=== PATIENT | female | born 1960 | race Caucasian/White ===

== ENCOUNTER → 2016-10-23 | Outpatient (CLI) | payer BC ==
--- NOTE | 2016-11-12 13:15 | MM ---
Reason for exam: screening (asymptomatic). Last mammogram was performed 3 years and 7 months ago. History: Patient is postmenopausal and had first child at age 36. Physical Findings: A clinical breast exam by your physician is recommended on an annual basis and results should be correlated with mammographic findings. MG 3D Screening Mammo W/Cad Bilateral CC and MLO view(s) were taken. Prior study comparison: March 25, 2013, mammogram, performed at [facility]. February 01, 2009, mammogram, performed at [facility]. January 23, 2007, mammogram, performed at [facility]. The breast tissue is heterogeneously dense. This may lower the sensitivity of mammography. Focal asymmetry right upper outer quadrant, stable. No significant changes when compared with prior studies. ASSESSMENT: Benign, BI-RAD 2 RECOMMENDATION: Routine screening mammogram of both breasts in 1 year.
== END | disposition home or self-care (01) ==
LOC: RADMAMWWP 14:54
PROVIDERS: ATTEND Family Medicine
DX: Z12.31 Encounter for screening mammogram for malignant neoplasm of breast (principal)
CPT/HCPCS: 77063; G0202

== ENCOUNTER → 2017-11-18 | Outpatient (CLI) | payer BC ==
--- NOTE | 2017-11-20 10:43 | MM ---
Reason for exam: screening (asymptomatic). Last mammogram was performed 1 year and 1 month ago. History: Patient is postmenopausal and had first child at age 36. Physical Findings: A clinical breast exam by your physician is recommended on an annual basis and results should be correlated with mammographic findings. MG 3D Screening Mammo W/Cad Bilateral CC and MLO view(s) were taken. Prior study comparison: October 23, 2016, bilateral MG 3d screening mammo w/cad. March 25, 2013, mammogram, performed at [facility]. There are scattered fibroglandular densities. Focal asymmetry right upper outer quadrant. No significant changes when compared with prior studies. ASSESSMENT: Benign, BI-RAD 2 RECOMMENDATION: Routine screening mammogram of both breasts in 1 year.
== END | disposition home or self-care (01) ==
LOC: RADMAMWWP 07:47
PROVIDERS: ATTEND Family Medicine
DX: Z12.31 Encounter for screening mammogram for malignant neoplasm of breast (principal)
CPT/HCPCS: 77063; 77067

== ENCOUNTER 2018-10-28 09:41 | Day surgery (SDC) | payer BC, OTHER ==
[2018-10-23 15:40] VITALS: BMI 29.0
--- NOTE | 2018-10-28 08:08 | P.GSHP ---
History of Present Illness H&P Date: 10/28/18 CHIEF COMPLAINT: Colon screen HISTORY OF PRESENT ILLNESS: The patient is a 58-year-old female who presents for colon screen. Lower endoscopy was offered for further evaluation and management. PAST MEDICAL HISTORY: Please see list. PAST SURGICAL HISTORY: Please see list. MEDICATIONS: Please see list. ALLERGIES: Please see list. SOCIAL HISTORY: No illicit drug use FAMILY HISTORY: No reports of Crohn disease or ulcerative colitis. REVIEW OF ORGAN SYSTEMS: CONSTITUTIONAL: No reports of fevers or chills. PHYSICAL EXAM: VITAL SIGNS: Stable GENERAL: Well-developed pleasant in no acute distress. HEENT: No scleral icterus. Extraocular movements grossly intact. Moist buccal mucosa. NECK: Supple without lymphadenopathy. CHEST: Unlabored respirations. Equal bilateral excursions. CARDIOVASCULAR: Regular rate and rhythm. Distal 2+ pulses. ABDOMEN: Soft, nontender, nondistended. MUSCULOSKELETAL: No clubbing, cyanosis, or edema. ASSESSMENT: 1. Colon screen. PLAN: 1. Recommend proceeding with a lower endoscopy Past Medical History Past Medical History: No Reported History History of Any Multi-Drug Resistant Organisms: None Reported Past Surgical History: Appendectomy, Hernia Repair Additional Past Surgical History / Comment(s): ABDOMINAL HERNIA, OVARIAN CYST, COLONOSCOPIES Past Anesthesia/Blood Transfusion Reactions: No Reported Reaction Past Psychological History: Depression Smoking Status: Former smoker Past Alcohol Use History: Daily Additional Past Alcohol Use History / Comment(s): SMOKES 1/2 PPD (DOWN FROM 1 PPD), SMOKING FOR 20 YEARS. DRINKS 1 GLASS OF WINE DAILY. Past Drug Use History: None Reported - Past Family History Father Family Medical History: Cancer Additional Family Medical History / Comment(s): COLON CANCER Medications and Allergies Home Medications Medication Instructions Recorded Confirmed Type No Known Home Medications 10/23/18 10/23/18 History Allergies Allergy/AdvReac Type Severity Reaction Status Date / Time No Known Allergies Allergy Verified 10/23/18 15:03
[~2018-10-28 09:41] MED LIST: LACTATED RINGERS 1,000 ML IV SCH; LIDOCAINE 1% 20 ML VIAL (10MG/ML) FOR IV START INTRADERMA PRN
[2018-10-28 10:25] VITALS: RESP 16; TEMP 97.1
[2018-10-28] MEDS ORDERED: LIDOCAINE 1% INJ 10MG/ML (20 ML MDV) ONE (10:47)
[2018-10-28] MEDS ORDERED: PROPOFOL 10 MG/ML 20 ML VIAL IV ONE (10:47)
--- NOTE | 2018-10-28 11:09 | P.PCN ---
Date of Procedure: 10/28/18 Description of Procedure: PREOPERATIVE DIAGNOSIS: Family history colon cancer, father Colonoscopy screening. POSTOPERATIVE DIAGNOSIS: Family history colon cancer, father Colonoscopy screening. OPERATION: Colonoscopy to the ileocecal valve and appendiceal orifice. SURGEON: Alka Yuan MD. ANESTHESIA: MAC. INDICATIONS: The patient is a 58-year-old female who presents for colonoscopy screening. Last colonoscopy 5 years ago. Benefits and risks were described and informed consent was obtained. DESCRIPTION OF PROCEDURE: The patient had undergone Gatorade, MiraLAX and Dulcolax prep. She had been brought into the operating room and laid in the left lateral decubitus position. After adequate intravenous sedation, the rectum was examined with 2% lidocaine jelly. No external hemorrhoids were encountered. The rectal tone was within normal limits. No lesions were palpated in the rectal vault. An Olympus colonoscope was advanced until the ileocecal valve and appendiceal orifice were clearly viewed. The prep was excellent with clear visualization of the mucosal folds. The scope was removed with visualization of each mucosal fold. Scattered diverticulosis was encountered. No colonic polyps were found. No evidence of focal colitis was found. Retroflexion of the scope demonstrated no internal hemorrhoids. The colon was desufflated. The patient had tolerated the procedure well. Withdrawal time was over 6 minutes. FINDINGS: No internal hemorrhoids No external prolapsed hemorrhoids. No arteriovenous malformations. No adenomatous polyps. No focal colitis. RECOMMENDATIONS: Lower endoscopy in 5 2023 Plan - Discharge Summary Discharge Rx Participant: No New Discharge Prescriptions: No Action No Known Home Medications Discharge Medication List No Known Home Medications 10/23/18 [History] Follow up Appointment(s)/Referral(s): Alka Yuan MD [STAFF PHYSICIAN] - As Needed Patient Instructions/Handouts: *[facility] - (Anesthesia) Endoscopy Discharge Instructions, Colonoscopy (GEN) Activity/Diet/Wound Care/Special Instructions: Repeat colonoscopy, 5 years2023 Discharge Disposition: HOME SELF-CARE
[2018-10-28 11:36] VITALS: BP 151/88; PULSE 63
== END 2018-10-28 11:43 | disposition home or self-care (01) ==
LOC: ORWHC2ENDO 09:41
PROVIDERS: ATTEND Surgery Plastic and Reconstructive Surgery
DX: Z12.11 Encounter for screening for malignant neoplasm of colon (principal); Z80.0 Family history of malignant neoplasm of digestive organs; K57.30 Diverticulosis of large intestine without perforation or abscess without bleeding
CPT/HCPCS: G0105; J2001; J2704; 45378

== ENCOUNTER → 2019-01-22 | Outpatient (CLI) | payer OTHER ==
--- NOTE | 2019-01-26 13:48 | MM ---
Reason for exam: screening (asymptomatic). Last mammogram was performed 1 year and 2 months ago. History: Patient is postmenopausal and had first child at age 36. Physical Findings: A clinical breast exam by your physician is recommended on an annual basis and results should be correlated with mammographic findings. MG Screening Mammo w CAD Bilateral CC and MLO view(s) were taken. Prior study comparison: November 18, 2017, bilateral MG 3d screening mammo w/cad. October 23, 2016, bilateral MG 3d screening mammo w/cad. There is chronic nodularity in the right breast. Focal asymmetry right upper outer quadrant, stable. No significant changes when compared with prior studies. ASSESSMENT: Benign, BI-RAD 2 RECOMMENDATION: Routine screening mammogram of both breasts in 1 year.
== END | disposition home or self-care (01) ==
LOC: RADMAMWWP 07:31
PROVIDERS: ATTEND Family Medicine
DX: Z12.31 Encounter for screening mammogram for malignant neoplasm of breast (principal)
CPT/HCPCS: 77067

== ENCOUNTER → 2020-03-06 | Outpatient (CLI) | payer OTHER | END | disposition home or self-care (01) | LOC: LABWHC1 08:40 | PROVIDERS: ATTEND Family Medicine | DX: Z11.59 Encounter for screening for other viral diseases (principal) ==

== ENCOUNTER → 2020-06-26 | Outpatient (CLI) | payer OTHER | END | disposition home or self-care (01) | LOC: LABWHC1 11:38 | PROVIDERS: ATTEND Emergency Medicine | DX: Z20.828 Contact with and (suspected) exposure to other viral communicable diseases (principal) | CPT/HCPCS: U0003; C9803 ==

== ENCOUNTER → 2020-09-19 | Outpatient (CLI) | payer OTHER ==
--- NOTE | 2020-09-21 13:54 | MM ---
Reason for exam: screening (asymptomatic). Last mammogram was performed 1 year and 8 months ago. History: Patient is postmenopausal and had first child at age 36. Physical Findings: A clinical breast exam by your physician is recommended on an annual basis and results should be correlated with mammographic findings. MG 3D Screening Mammo W/Cad Bilateral CC and MLO view(s) were taken. Prior study comparison: January 22, 2019, bilateral MG screening mammo w CAD. November 18, 2017, bilateral MG 3d screening mammo w/cad. There are scattered fibroglandular densities. There is chronic nodularity in the right breast. No significant changes when compared with prior studies. ASSESSMENT: Benign, BI-RAD 2 RECOMMENDATION: Routine screening mammogram of both breasts in 1 year.
== END | disposition home or self-care (01) ==
LOC: RADMAMWWP 13:58
PROVIDERS: ATTEND Family Medicine
DX: Z12.31 Encounter for screening mammogram for malignant neoplasm of breast (principal)
CPT/HCPCS: 77063; 77067

== ENCOUNTER → 2021-01-15 | Outpatient (CLI) | payer OTHER ==
--- NOTE | 2021-01-16 06:58 | XR ---
Right hip HISTORY: Right hip pain 2 views the right hip There is marginal spurring and joint space loss. Remodeling is present at the femoral head. Alignment is maintained. Bone mineralization may be reduced. No fracture or dislocation. IMPRESSION: Osteoarthritis.
== END | disposition home or self-care (01) ==
LOC: RADXRMAIN 20:55
PROVIDERS: ATTEND Family Medicine
DX: M16.11 Unilateral primary osteoarthritis, right hip (principal)
CPT/HCPCS: 73502

== ENCOUNTER → 2021-11-15 | Outpatient (CLI) | payer OTHER ==
--- NOTE | 2021-11-19 10:41 | MM ---
Reason for exam: screening (asymptomatic). Last mammogram was performed 1 year and 2 months ago. History: Patient is postmenopausal and had first child at age 36. Physical Findings: A clinical breast exam by your physician is recommended on an annual basis and results should be correlated with mammographic findings. MG 3D Screening Mammo W/Cad Bilateral CC and MLO view(s) were taken. Prior study comparison: September 19, 2020, bilateral MG 3d screening mammo w/cad. January 22, 2019, bilateral MG screening mammo w CAD. There are scattered fibroglandular densities. Global asymmetry right upper outer quadrant is unchanged. No significant changes when compared with prior studies. ASSESSMENT: Benign, BI-RAD 2 RECOMMENDATION: Routine screening mammogram of both breasts in 1 year.
== END | disposition home or self-care (01) ==
LOC: RADMAMWWP 09:21
PROVIDERS: ATTEND Family Medicine
DX: Z12.31 Encounter for screening mammogram for malignant neoplasm of breast (principal); Z78.0 Asymptomatic menopausal state
CPT/HCPCS: 77063; 77067

== ENCOUNTER → 2022-12-10 | Outpatient (CLI) | payer BC ==
--- NOTE | 2022-12-11 07:22 | MM ---
Reason for Exam: Screening (asymptomatic). Last mammogram was performed 1 year(s) and 1 month(s) ago. Patient History: Menarche at age 14. First Full-Term at age 36. Late child-bearing (after 30). Postmenopausal. Currently using Estrogen. Risk Values: Meron 5 year model risk: 2.0%. NCI Lifetime model risk: 10.0%. Prior Study Comparison: 01/22/2019 Bilateral Screening Mammogram, [facility]. 09/19/2020 Bilateral Screening Mammogram, [facility]. 11/15/2021 Bilateral Screening Mammogram, [facility]. Tissue Density: There are scattered fibroglandular densities. Findings: Analyzed By CAD. Asymmetric tissue in the right breast upper outer aspect is unchanged from prior mammograms. There is no suspicious new group of microcalcifications or new suspicious mass in either breast. Overall Assessment: Negative, BI-RAD 1 Management: Screening Mammogram of both breasts in 1 year. A clinical breast exam by your physician is recommended on an annual basis and results should be correlated with mammographic findings. Electronically signed and approved by: Bobo Lara M.D.
== END | disposition home or self-care (01) ==
LOC: RADMAMWWP 12-02 07:00
PROVIDERS: ATTEND Family Medicine
DX: Z12.31 Encounter for screening mammogram for malignant neoplasm of breast (principal); Z78.0 Asymptomatic menopausal state
CPT/HCPCS: 77063; 77067

== ENCOUNTER → 2023-03-27 | Outpatient (CLI) | payer BC ==
--- NOTE | 2023-03-27 13:37 | US ---
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 VESSELS IMAGED: Common Femoral Vein Deep Femoral Vein Greater Saphenous Vein * Femoral Vein Popliteal Vein Small Saphenous Vein * Proximal Calf Veins (* superficial vessels) Right Leg: Negative for DVT IMPRESSION: Grayscale, color doppler, spectral doppler imaging performed of the deep veins of the lo wer extremities. There is normal flow, compressibility, vascular waveforms.
== END | disposition home or self-care (01) ==
LOC: RADUSWWP 13:01
PROVIDERS: ATTEND Orthopaedic Surgery Sports Medicine
DX: M16.11 Unilateral primary osteoarthritis, right hip (principal); Z47.1 Aftercare following joint replacement surgery; Z96.641 Presence of right artificial hip joint

== ENCOUNTER 2023-09-28 17:24 | Emergency (ER) | payer BC ==
--- NOTE | 2023-09-28 17:45 | ED ---
Head Injury HPI - General Chief complaint: Head Injury Stated complaint: Head Injury Time Seen by Provider: 09/28/23 17:31 Source: patient Mode of arrival: ambulatory Limitations: no limitations - History of Present Illness Initial comments: 62-year-old female presenting with chief complaint of bruising and swelling to the face. Patient states that on Friday she slipped on her porch steps and fell hitting the right side of her forehead, near the eye, on the guard rail of her porch. She had no loss of consciousness and she takes no blood thinners. She states that the next day she woke up with bruising to the right periorbital region. Today bruising surrounding the right eye is worse and there is a very small amount of bruising under the left eye. She states that the amount of swelling to the right eye is what prompted her to come to the ER. She denies headache, neck pain, nausea, vomiting, dizziness, vision or hearing changes, pain or difficulty with extraocular motions, numbness, tingling, weakness, chest pain, difficulty breathing, clear drainage from the nose or ears. - Related Data Home Medications Medication Instructions Recorded Confirmed No Known Home Medications 10/23/18 10/28/18 Allergies/Adverse reactions: Allergies Allergy/AdvReac Type Severity Reaction Status Date / Time No Known Allergies Allergy Verified 10/28/18 10:07 Review of Systems ROS Statement: Those systems with pertinent positive or pertinent negative responses have been documented in the HPI. ROS Other: All systems not noted in ROS Statement are negative. Past Medical History Past Medical History: No Reported History History of Any Multi-Drug Resistant Organisms: None Reported Past Surgical History: Appendectomy, Hernia Repair Additional Past Surgical History / Comment(s): ABDOMINAL HERNIA, OVARIAN CYST, COLONOSCOPIES Past Anesthesia/Blood Transfusion Reactions: No Reported Reaction Past Psychological History: Depression Past Alcohol Use History: Daily Past Drug Use History: None Reported - Past Family History Father Family Medical History: Cancer Additional Family Medical History / Comment(s): COLON CANCER General Exam Limitations: no limitations General appearance: alert, in no apparent distress Head exam: Present: normocephalic Expanded Head exam: Present: contusion (Bruising and swelling surrounding the right eye, no point tenderness) Eye exam: Present: PERRL, EOMI, periorbital swelling (Right eye). Absent: periorbital tenderness (there is some mild discomfort, no notable tenderness) Pupils: Present: normal accommodation Neck exam: Present: normal inspection, full ROM. Absent: tenderness Respiratory exam: Present: normal lung sounds bilaterally. Absent: respiratory distress, wheezes, rales, rhonchi, stridor Cardiovascular Exam: Present: regular rate, normal rhythm, normal heart sounds. Absent: systolic murmur, diastolic murmur, rubs, gallop, clicks Extremities exam: Present: normal inspection, full ROM Back exam: Present: normal inspection Neurological exam: Present: alert, oriented X3 Expanded Patient oriented to: Present: person, place, time Speech: Present: fluid speech Cranial nerves: EOM's Intact: Normal, Facial Sensation: Normal Cerebellar function: Finger to Nose: Normal, Heel to [place]: Normal Sensory exam: Upper Extremity Light Touch: Normal, Lower Extremity Light Touch: Normal Motor strength exam: RUE: 5, LUE: 5, RLE: 5, LLE: 5 Eye Response: (4) open spontaneously Motor Response: (6) obeys commands Verbal Response: (5) oriented [place] Total: 15 Psychiatric exam: Present: normal affect, normal mood Skin exam: Present: warm, dry Course Vital Signs 09/28/23 09/28/23 17:27 17:59 Temperature 97.9 F 98.9 F Pulse Rate 83 80 Respiratory 16 18 Rate Blood Pressure 155/99 146/90 O2 Sat by Pulse 98 97 Oximetry Medical Decision Making - Medical Decision Making Was pt. sent in by a medical professional or institution ([facility], RETAIL SALES REPRESENTATIVE, urgent care, hospital, or jail...) When possible be specific @ -No Did you speak to anyone other than the patient for history (EMS, parent, family, police, friend...)? What history was obtained from this source @ -No Did you review nursing and triage notes (agree or disagree)? Why? @ -I reviewed and agree with nursing and triage notes Were old charts reviewed (outside hosp., previous admission, EMS record, old EKG, old radiological studies, urgent care reports/EKG's, jail records)? Report findings @ -No old charts were reviewed Differential Diagnosis (chest pain, altered mental status, abdominal pain women, abdominal pain men, vaginal bleeding, weakness, fever, dyspnea, syncope, h eadache, dizziness, GI bleed, back pain, seizure, CVA, palpatations, mental health, musculoskeletal)? @ -Differential includes head injury, concussion, intracranial hemorrhage, fr acture, this is not an all inclusive list EKG interpreted by me (3pts min.). @ -As above X-rays interpreted by me (1pt min.). @ -None done CT interpreted by me (1pt min.). @ -None done U/S interpreted by me (1pt. min.). @ -None done What testing was considered but not performed or refused? (CT, X-rays, U/S, labs)? Why? @ -CT was offered, however patient refused. She tells me that she has had insurance issues recently and she is worried about paying for the CT and does not believe she needs one. What meds were considered but not given or refused? Why? @ -None Did you discuss the management of the patient with other professionals (professionals i.e. Dr., PA, RETAIL SALES REPRESENTATIVE, lab, RT, psych nurse, social human services assistants, wire machine cutter, teacher, parole or probation officer, major case detective)? Give summary @ -No Was smoking cessation discussed for >3mins.? @ -No Was critical care preformed (if so, how long)? @ -No Were there social determinants of health that impacted care today? How? (Homelessness, low income, unemployed, alcoholism, drug addiction, transportation, low edu. Level, literacy, decrease access to med. care, snf, rehab)? @ -No Was there de-escalation of care discussed even if they declined (Discuss DNR or withdrawal of care, Hospice)? DNR status @ -No What co-morbidities impacted this encounter? (DM, HTN, Smoking, COPD, CAD, Cancer, CVA, ARF, Chemo, Hep., AIDS, mental health diagnosis, sleep apnea, morbid obesity)? @ -None Was patient admitted / discharged? Hospital course, mention meds given and route, prescriptions, significant lab abnormalities, going to OR and other pertinent info. @ -62-year-old female presenting with chief complaint of bruising and swelling to the right eye. Patient had a fall 2 days ago where she hit the right side of her forehead against her porch. She had no loss of consciousness and no blood thinners. Since then she has had no headache, neck pain, numbness, tingling, weakness, pain or difficulty with extraocular motions, vision or hearing changes, nausea, vomiting, dizziness. No clear drainage from the nose or ears. Patient came in for evaluation due to the increased swelling and bruising today. On examination there are no focal neurological deficits, GCS is 15. No pain on palpation of the neck or base of the skull. No point tenderness on palpation of the periorbital region. I offered to perform a computed tomography scan, patient declined. We had a conversation on the risks and benefits of obtaining vs foregoing CT, patient continued to decline. She is of sound mind and body and able to make her own decisions. Given that the patient has no pain, no evidence of CSF leak, no neurological deficits, is not on blood thinners, and given the timeframe since her injury I believe she is low risk for any fracture or acute intracranial process. Increased bruising and swelling after an injury to the periorbital region is to be expected in this timeframe. Patient is educated on supportive management at home with ice and anti-inflammatories. She is educated on alarm symptoms that should prompt reevaluation. Follow-up with PCP. Report back to ER with any new or worsening symptoms. Discussed return parameters and answered all questions. Patient conveyed verbal understanding and agreed to the plan. I discussed this case in detail with my attending Dr. Robin Undiagnosed new problem with uncertain prognosis? @ -No Drug Therapy requiring intensive monitoring for toxicity (Heparin, Nitro, Insulin, Cardizem)? @ -No Were any procedures done? @ -No Diagnosis/symptom? @ -Head injury Acute, or Chronic, or Acute on Chronic? @ -acute Uncomplicated (without systemic symptoms) or Complicated (systemic symptoms)? @ -Uncomplicated Side effects of treatment? @ -No Exacerbation, Progression, or Severe Exacerbation? @ -No Poses a threat to life or bodily function? How? (Chest pain, [place], [place], pneumonia, PE, COPD, DKA, ARF, appy, cholecystitis, CVA, Diverticulitis, Homicidal, Suici rodrick, threat to staff... and all critical care pts) @ -Low likelihood Disposition Clinical Impression: Head injury, Contusion of face Disposition: HOME SELF-CARE Condition: Good Instructions (If sedation given, give patient instructions): Head Injury (ED) Additional Instructions: Follow-up with PCP. Report back to ER with any new or worsening symptoms. Continue to ice the affected area and take Motrin and Tylenol as needed for pain and swelling. Is patient prescribed a controlled substance at d/c from ED?: No Referrals: Jose G Lofton DO [Primary Care Provider] - 1-2 days Time of Disposition: 17:45
[2023-09-28 18:22] VITALS: BP 146/90; PULSE 80; RESP 18; TEMP 98.9
== END 2023-09-28 18:01 | disposition home or self-care (01) ==
LOC: EC 17:24
DX: S00.83XA Contusion of other part of head, initial encounter (principal); Z86.59 Personal history of other mental and behavioral disorders; W01.0XXA Fall on same level from slipping, tripping and stumbling without subsequent striking against object, initial encounter
CPT/HCPCS: 99283

== ENCOUNTER 2024-10-05 22:23 | Inpatient (IN) | payer MEDICAID, OTHER ==
--- NOTE | 2024-10-05 22:50 | ED ---
Psych HPI - General Source: patient Mode of arrival: EMS - History of Present Illness MD Complaint: feels depressed Associated Psychiatric Symptoms: depression, suicidal ideation History of same: Yes Quality: intermittent Worsens With: alcohol Context: recent alcohol abuse Associated Symptoms: denies other symptoms <Zane Salinas - Last Filed: 10/05/24 22:46> - General Source: patient, RN notes reviewed, old records reviewed Mode of arrival: EMS - History of Present Illness MD Complaint: feels depressed <Eugene Robin - Last Filed: 10/06/24 11:56> - General Chief Complaint: Alcohol Stated Complaint: Psych Time Seen by Provider: 10/05/24 22:28 - History of Present Illness Initial Comments: This patient is a 63-year-old woman here to have psychiatric evaluation. The patient states that she was feeling "unstable," earlier and she called her family. The patient states that her family called 911 and and resulted in her being brought in. The patient states that she is feeling better now, that she is not currently suicidal. (Zane Salinas) This is a 63-year-old woman here for psychiatric evaluation, patient did take overdose (Eugene Robin) - Related Data Home Medications Medication Instructions Recorded Confirmed Mirtazapine 15 mg PO HS 10/06/24 10/06/24 Allergies Allergy/AdvReac Type Severity Reaction Status Date / Time No Known Allergies Allergy Verified 10/06/24 09:43 Review of Systems ROS Other: All systems not noted in ROS Statement are negative. Constitutional: Denies: fever, chills Respiratory: Denies: cough, dyspnea Cardiovascular: Denies: chest pain, palpitations Gastrointestinal: Denies: abdominal pain, nausea, vomiting Genitourinary: Denies: dysuria, hematuria Musculoskeletal: Denies: back pain Skin: Denies: rash Neurological: Denies: headache, weakness, confusion Psychiatric: Reports: anxiety, depression, suicidal thoughts <Zane Salinas - Last Filed: 10/05/24 22:46> ROS Other: All systems not noted in ROS Statement are negative. <Eugene Robin - Last Filed: 10/06/24 11:56> ROS Statement: Those systems with pertinent positive or pertinent negative responses have been documented in the HPI. Past Medical History Past Medical History: No Reported History History of Any Multi-Drug Resistant Organisms: None Reported Past Surgical History: Appendectomy, Hernia Repair Additional Past Surgical History / Comment(s): ABDOMINAL HERNIA, OVARIAN CYST, COLONOSCOPIES Past Anesthesia/Blood Transfusion Reactions: No Reported Reaction Past Psychological History: Depression Past Alcohol Use History: Daily Past Drug Use History: None Reported - Past Family History Father Family Medical History: Cancer Additional Family Medical History / Comment(s): COLON CANCER <RitaZane - Last Filed: 10/05/24 22:46> General Exam Limitations: no limitations General appearance: alert, in no apparent distress Head exam: Present: atraumatic, normocephalic Eye exam: Present: normal appearance. Absent: scleral icterus, conjunctival injection Neck exam: Present: normal inspection Respiratory exam: Present: normal lung sounds bilaterally. Absent: respiratory distress, wheezes, rales, rhonchi, stridor, accessory muscle use Cardiovascular Exam: Present: regular rate, normal rhythm, normal heart sounds. Absent: systolic murmur, diastolic murmur, rubs, gallop GI/Abdominal exam: Present: soft. Absent: distended, tenderness Extremities exam: Present: normal inspection, normal capillary refill. Absent: pedal edema, calf tenderness Back exam: Present: normal inspection. Absent: CVA tenderness (R), CVA tenderness (L) Neurological exam: Present: alert Psychiatric exam: Present: depressed, anxious. Absent: agitated, manic, homicidal ideation, suicidal ideation Skin exam: Present: warm, dry, intact, normal color. Absent: rash <Zane Salinas - Last Filed: 10/05/24 22:46> Course <Eugene Robin - Last Filed: 10/06/24 11:56> Vital Signs 10/05/24 10/06/24 22:26 09:57 Temperature 97.7 F Pulse Rate 86 142 H Respiratory 18 100 H Rate Blood Pressure 148/87 142/86 O2 Sat by Pulse 93 L 98 Oximetry - Reevaluation(s) Reevaluation #1: 10/06/24 11:55 Medical records reviewed (Eugene Robin) Reevaluation #2: 10/06/24 11:55 Medically cleared for psychiatric evaluation (Eugene Robin) Medical Decision Making - Lab Data Result diagrams: 10/06/24 09:35 10/06/24 09:35 - EKG Data -: EKG Interpreted by Me (EKG is sinus 77 NC 151 QRS 94 QTc 438) <Eugene Robin - Last Filed: 10/06/24 11:56> - Medical Decision Making 63 female will be admitted for psychiatric evaluation and treatment (Eugene Robin) - Lab Data Lab Results 10/06/24 10/06/24 Range/Units 09:35 09:35 WBC 6.0 (3.8-10.6) k/uL RBC 3.67 L (3.80-5.40) m/uL Hgb 13.0 (11.4-16.0) gm/dL Hct 39.5 (34.0-46.0) % MCV 107.5 H (80.0-100.0) fL MCH 35.3 H (25.0-35.0) pg MCHC 32.9 (31.0-37.0) g/dL RDW 12.1 (11.5-15.5) % Plt Count 237 (150-450) k/uL MPV 7.9 Neutrophils % 75 % Lymphocytes % 18 % Monocytes % 4 % Eosinophils % 1 % Basophils % 0 % Neutrophils # 4.5 (1.3-7.7) k/uL Lymphocytes # 1.1 (1.0-4.8) k/uL Monocytes # 0.3 (0-1.0) k/uL Eosinophils # 0.1 (0-0.7) k/uL Basophils # 0.0 (0-0.2) k/uL Macrocytosis Moderate Sodium 139 (137-145) mmol/L Potassium 4.7 (3.5-5.1) mmol/L Chloride 107 (98-107) mmol/L Carbon Dioxide 22 (22-30) mmol/L Anion Gap 10 mmol/L BUN 14 (7-17) mg/dL Creatinine 0.91 (0.52-1.04) mg/dL Est GFR (CKD-EPI)AfAm 79 (>60 ml/min/1.73 sqM) Est GFR (CKD-EPI)NonAf 68 (>60 ml/min/1.73 sqM) Glucose 84 (74-99) mg/dL Calcium 10.3 H (8.4-10.2) mg/dL Phosphorus 4.7 H (2.5-4.5) mg/dL Magnesium 1.5 L (1.6-2.3) mg/dL Total Bilirubin 0.7 (0.2-1.3) mg/dL AST 56 H (14-36) U/L ALT 42 H (4-34) U/L Alkaline Phosphatase 49 (38-126) U/L Total Protein 7.3 (6.3-8.2) g/dL Albumin 4.6 (3.5-5.0) g/dL Lipase 105 (23-300) U/L Salicylates <1.0 mg/dL Acetaminophen <10.0 ug/mL Serum Alcohol <10 mg/dL Disposition <Zane Salinas - Last Filed: 10/05/24 22:46> Is patient prescribed a controlled substance at d/c from ED?: No Time of Disposition: 11:50 <Eugene Robin - Last Filed: 10/06/24 11:56> Clinical Impression: Overdose, Normal psychiatric assessment Disposition: TRANSFER TO PSYCH HOSP/UNIT Condition: Fair Referrals: None,Stated [REFERRING] - 1-2 days
[2024-10-06 10:10] LABS: Basophils % (A) 0 %; Eosinophils # (A) 0.1 k/uL (0-0.7); Eosinophils % (A) 1 %; HCT 39.5 % (34.0-46.0); Lymphocytes # (A) 1.1 k/uL (1.0-4.8); Lymphocytes % (A) 18 %; MCH 35.3 pg (25.0-35.0); MCHC 32.9 g/dL (31.0-37.0); MCV 107.5 fL (80.0-100.0); Macrocytosis Moderate; Mean Platelet Volume 7.9; Monocytes # (A) 0.3 k/uL (0-1.0); Monocytes % (A) 4 %; Neutrophils # (A) 4.5 k/uL (1.3-7.7); Neutrophils % (A) 75 %; Platelet Count 237 k/uL (150-450); RBC 3.67 m/uL (3.80-5.40); RDW 12.1 % (11.5-15.5)
[2024-10-06 10:18] LABS: ALT 42 U/L (4-34); Acetaminophen <10.0 ug/mL; African American GFR (CKD) 79 (>60 ml/min/1.73 sqM); Albumin 4.6 g/dL (3.5-5.0); Alcohol <10 mg/dL; Anion Gap 10 mmol/L; Blood Urea Nitrogen 14 mg/dL (7-17); Calcium 10.3 mg/dL (8.4-10.2); Carbon Dioxide 22 mmol/L (22-30); Chloride 107 mmol/L (98-107); Glucose 84 mg/dL (74-99); Lipase 105 U/L (23-300); Non-African American GFR(CKD) 68 (>60 ml/min/1.73 sqM); Salicylate <1.0 mg/dL; Sodium 139 mmol/L (137-145); Total Bilirubin 0.7 mg/dL (0.2-1.3); Total Protein 7.3 g/dL (6.3-8.2)
[2024-10-06 10:21] LABS: Potassium 4.7 mmol/L (3.5-5.1)
[2024-10-06 10:22] LABS: AST 56 U/L (14-36); Alkaline Phosphatase 49 U/L (38-126); Magnesium 1.5 mg/dL (1.6-2.3); Phosphorus 4.7 mg/dL (2.5-4.5)
[2024-10-06 12:04] LABS: Appearance,Urine Cloudy (Clear); Bacteria,Urine Rare /hpf; Bilirubin,Urine Negative (Negative); Blood,Urine Negative (Negative); Color,Urine Yellow; Glucose,Urine (UA) Negative (Negative); Ketones,Urine 2+ (Negative); Leukocyte Esterase,Urine Negative (Negative); Mucus,Urine Rare /hpf; Nitrite,Urine Negative (Negative); Protein,Urine Negative (Negative); RBC,Urine 1 /hpf (0-5); Squamous Epithelial Cell,Urine 8 /hpf (0-4); Urobilinogen,Urine <2.0 mg/dL (<2.0); WBC,Urine 3 /hpf (0-5)
[2024-10-06 12:09] LABS: Amphetamine Screen,Urine Not Detected (NotDetected); Barbiturate Screen,Urine Not Detected (NotDetected); Benzodiazepines Screen,Urine Not Detected (NotDetected); Cocaine Screen,Urine Not Detected (NotDetected); Methadone Screen, Urine Not Detected (NotDetected); Opiate Screen,Urine Not Detected (NotDetected); Oxycodone Screen, Urine Not Detected (NotDetected); Phencyclidine Screen,Urine Not Detected (NotDetected); Tricyclic Antidepressant,Urine Not Detected (NotDetected); Urn Cannabinoid Scrn Not Detected (NotDetected)
[2024-10-06] MEDS: MAGNESIUM OXIDE 400 MG TAB PO STA ×2 (12:18)
[2024-10-06] MEDS ORDERED: MAG HYDROX/AL HYDROX/SIMETH 355 ML BOTTLE PO PRN (13:26)
[2024-10-06] MEDS ORDERED: MAGNESIUM HYDROXIDE 2,400 MG/30 ML CUP PO PRN (13:26)
[2024-10-06] MEDS ORDERED: LORazepam 1 MG TAB PO PRN ×2 (13:26)
[2024-10-06] MEDS ORDERED: ACETAMINOPHEN TAB 325 MG TAB PO PRN (13:26)
[2024-10-06] MEDS ORDERED: IBUPROFEN 600 MG TAB PO PRN (13:26)
[2024-10-06] MEDS ORDERED: hydrOXYzine HCL 50 MG/ML 1 ML VIAL IM PRN (13:28)
[2024-10-06] MEDS ORDERED: hydrOXYzine pamoate 25 MG CAP PO PRN (13:28)
[2024-10-06] MEDS ORDERED: OLANZapine 10 MG TAB PO PRN (13:28)
[2024-10-06] MEDS ORDERED: OLANZapine 10 MG VIAL IM PRN (13:28)
[2024-10-06] MEDS ORDERED: FAMOTIDINE 20 MG TAB PO PRN (13:28)
[2024-10-06] MEDS: BACITRACIN OINT 1 EACH PACKET TOPICAL SCH (20:28)
[2024-10-07] MEDS: NICOTINE 14MG/24HR PATCH TRANSDERM SCH (08:52)
[2024-10-07] MEDS: FOLIC ACID 1 MG TAB PO SCH (08:54)
[2024-10-07] MEDS: MULTIVITAMINS, THERA 1 EACH TAB PO SCH (08:54)
[2024-10-07] MEDS: THIAMINE 100 MG TAB PO SCH (08:54)
--- NOTE | 2024-10-07 09:40 | P.MDCNMH ---
History of Present Illness H&P Date: 10/06/24 This is a 63-year-old female who presented to the emergency department with recent alcohol abuse, increased depression and suicidal ideation. Patient reports she follows with Dr. Lofton in the outpatient setting with no significant past medical history other than depression. Patient does admit to drinking alcohol and smoking cigarettes and denies any other illicit drug use. Nicotine patch offered and patient reports she would like to quit cold turkey. Patient was initially petitioned by the police department and was voluntarily admitted to [facility] for further psychiatric evaluation. Patient did report she cut her wrists and forearms and antecubital area with her very sharp German knife mane ffering superficial wounds. On exam there are multiple lacerations none requiring suturing or gluing although recommend bacitracin and frequent washing with soap and water. Patient denies any significant pain to the area. On exam patient denies chest pain or shortness of breath and has a steady gait. REVIEW OF SYSTEMS: CONSTITUTIONAL: No fever, no malaise, no fatigue. HEENT: No recent visual problems or hearing problems. Denied any sore throat. CARDIOVASCULAR: No chest pain, orthopnea, PND, no palpitations, no syncope. PULMONARY: No shortness of breath, no cough, no hemoptysis. GASTROINTESTINAL: No diarrhea, no nausea, no vomiting, no abdominal pain. NEUROLOGICAL: No headaches, no weakness, no numbness. HEMATOLOGICAL: Denies any bleeding or petechiae. GENITOURINARY: Denies any burning micturition, frequency, or urgency. MUSCULOSKELETAL/RHEUMATOLOGICAL: Denies any joint pain, swelling, or any muscle pain. ENDOCRINE: Denies any polyuria or polydipsia. The rest of the 14-point review of systems is negative. PHYSICAL EXAMINATION: GENERAL: The patient is alert and oriented x3, not in any acute distress. Well developed, thin built HEENT: Pupils are round and equally reacting to light. EOMI. No scleral icterus. No conjunctival pallor. Normocephalic, atraumatic. No pharyngeal erythema. No thyromegaly. CARDIOVASCULAR: S1 and S2 present. No murmurs, rubs, or gallops. PULMONARY: Chest is clear to auscultation, no wheezing or crackles. ABDOMEN: Soft, nontender, nondistended, normoactive bowel sounds. No palpable organomegaly. MUSCULOSKELETAL: No joint swelling or deformity. EXTREMITIES: No cyanosis, clubbing, or pedal edema. NEUROLOGICAL: Gross neurological examination did not reveal any focal deficits. SKIN: No rashes. Assessment: Severe depression with suicidal ideation and attempted overdose Multiple lacerations to bilateral forearms and antecubital area on the right, superficial not requiring sutures with no surrounding redness or cellulitis not ed Continued ongoing nicotine abuse Daily alcohol abuse Depression GI prophylaxis Full code Plan: Patient was initially petitioned by the police after family contacted them as patient feeling unstable with increased depression and suicidal ideation. Patient was voluntarily admitted to [facility]. for further psychiatric evaluation Encourage the patient to be compliant with medications, group therapy sessions and psychiatry evaluation Multiple superficial lacerations noted to the right forearm, wrist, and antecubital area with no surrounding cellulitis or drainage noted, recommend meticulous washing with soap and water and bacitracin Patient medically stable otherwise and has been encouraged to follow-up with primary care provider on discharge Thank you kindly for this consultation. The impression and plan of care has been dictated by Rowena Milian, Nurse Practitioner as directed. Dr. Lilia MD I have performed a history and examination and MDM of this patient, discussed the same with the dictator, and agree with the dictator's assessment and plan as written ,documented as a scribe. Based on total visit time, I have performed more than 50% of the visit. Past Medical History Past Medical History: No Reported History History of Any Multi-Drug Resistant Organisms: None Reported Past Surgical History: Appendectomy, Hernia Repair Additional Past Surgical History / Comment(s): ABDOMINAL HERNIA, OVARIAN CYST, COLONOSCOPIES Past Anesthesia/Blood Transfusion Reactions: No Reported Reaction Smoking Status: Current every day smoker - Past Family History Father Family Medical History: Cancer Additional Family Medical History / Comment(s): COLON CANCER Medications and Allergies Home Medications Medication Instructions Recorded Confirmed Type Mirtazapine 15 mg PO HS 10/06/24 10/06/24 History Allergies Allergy/AdvReac Type Severity Reaction Status Date / Time No Known Allergies Allergy Verified 10/06/24 09:43 Physical Exam Vitals: Vital Signs Temp Pulse Pulse Resp BP BP Pulse Ox 10/06/24 14:14 98.3 F 68 17 181/86 97 10/06/24 13:41 16 10/06/24 12:18 83 16 140/86 98 10/06/24 09:57 142 H 100 H 142/86 98 Intake and Output 10/06/24 10/06/24 10/07/24 14:59 22:59 06:59 Other: Weight 80.739 kg Cranial Nerve Examination - Cranial Nerves Cranial Nerve I- Olfactory: Intact Cranial Nerve II- Optic: Intact Cranial Nerve III- Oculomotor: Intact Cranial Nerve IV- Trochlear: Intact Cranial Nerve V- Trigeminal: Intact Cranial Nerve - Abducens: Intact Cranial Nerve VII- Facial: Intact Cranial Nerve VIII- Auditory: Intact Cranial Nerve IX- Glossopharyngeal: Intact Cranial Nerve X- Vagus: Intact Cranial Nerve XI- Accessory: Intact Cranial Nerve XII- Hypoglossal: Intact Results CBC & Chem 7: 10/06/24 09:35 10/06/24 09:35 Labs: Abnormal Lab Results - Last 24 Hours (Table) 10/06/24 10/06/24 10/06/24 Range/Units 09:35 09:35 09:35 RBC 3.67 L (3.80-5.40) m/uL MCV 107.5 H (80.0-100.0) fL MCH 35.3 H (25.0-35.0) pg Calcium 10.3 H (8.4-10.2) mg/dL Phosphorus 4.7 H (2.5-4.5) mg/dL Magnesium 1.5 L (1.6-2.3) mg/dL AST 56 H (14-36) U/L ALT 42 H (4-34) U/L Urine Appearance Cloudy H (Clear) Urine Ketones 2+ H (Negative) Ur Squamous Epith Cells 8 H (0-4) /hpf Urine Bacteria Rare H (None) /hpf Urine Mucus Rare H (None) /hpf
[2024-10-07] MEDS ORDERED: traZODone HCL 50 MG TAB PO PRN (13:05)
[2024-10-07] MEDS: SERTRALINE 50 MG TAB PO SCH (14:20)
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
--- NOTE | 2024-10-08 10:27 | P.PN ---
Progress Note - Text Progress Note Date: 10/08/24 Interval History: Patient was seen in group and was directable and agreeable to speak with physician underwriter in the office. She states feeling "better" today. She does express some difficulties falling asleep however states she does not wish to start melatonin as she prefers more herbal route. She mentions walking 4 miles yesterday for exercise however denied any restlessness or akathisia. She states she normally walks her dog 2-3 times a day and is very active on the outside. Patient seems very motivated to be engaged in therapy once discharged, goal oriented today. Patient has been working on cognitive distortions. She does report constipation, last bowel movement on Friday and was encouraged to take as needed medications for this. At this time patient denies any suicidal or homicidal ideations, intent or plan. Patient denies any auditory, visual hallucinations and denies any paranoia or delusions. Patient denies any side effects from the medications and has been compliant with meds. Mental Status Exam: General Appearance: Patient appears to be stated age is alert, directable, and cooperative. She is wearing glasses Behavior: Patient is calmly seated without any agitated behavior. Speech: Patient's speech is fluent and nonpressured. Mood/Affect: Mood is improving mildly, affect is congruent and bright, reactive. Suicidality/Homicidality: Patient denies having any suicidal or homicidal ideation intent or plan. Perceptions: Patient denies any visual hallucinations and denies any auditory hallucinations Though content/process: There is no evidence of any delusional thought content and thought process is linear and goal-directed. Memory and concentration: AOX3, grossly intact for the purposes of this session Judgment and insight: Improving mildly Assessment Suicide attempt via OD, cutting Major depressive disorder, recurrent, severe Alcohol use disorder, moderate Nicotine dependence Plan: -Patient continues to meet criteria for inpatient psychiatric admission for symptom stabilization and safety. Patient has signed adult voluntary form and medication consent and was placed in patient's chart. -Medications: Continue Zoloft 50 mg daily for depression, trazodone 50 mg as needed at bedtime for insomnia -When necessary Atarax and Zyprexa for agitation/aggression. -Labs: Reviewed -NRT -nicotine patch -CIWA protocol with Ativan PRN for ETOH withdrawal. -SW on board for discharge planning. Encouraged the patient to participate in milieu. Anticipate discharge back home on Friday
[2024-10-09 07:59] VITALS: RESP 16
--- NOTE | 2024-10-09 11:42 | P.PN ---
Progress Note - Text Progress Note Date: 10/09/24 Dictation was produced using Leaf dictation software. Please excuse any grammatical, word or spelling errors. Interval history: Patient was seen in her room and was directable and agreeable to speak with the abstract writer in the office for psychiatric follow-up. The pt states that she is feeling well today, she was able to reflect on what brought her to the hospital, reported that she had some difficulty coping with depression and anxiety and she was coping by using alcohol, and she had suicidal thoughts via cutting during which she cut her wrist. Reported that she called her sister at that time and her nephew decided to call the police and she was brought to the hospital. She reported that she is feeling really well today since her sister came to visit her and reported that they had a good chat. She claims that depression and anxiety are at the low to moderate side, she rated depression at 23 per 10, reported anxiety to be at the low side. She denied any current suicidal, self- harm or homicidal thoughts or behavior, she reported that "it was a bad mistake to cut my wrist and to drink alcohol." She denied any current auditory or visual hallucination, she admitted to good sleep and appetite. Reported that she is planning on seeing a therapist and psychiatrist following discharge, reported that she has a dog which she enjoyed walking twice a day. Reported that she has good support from her family and they socialize often. She is compliant with her medication, denied any current side effects. Her insight has been improving, her thought process is improving as well and more logical and linear. She is getting along well with everyone in the hospital, no issues of aggression or agitation reported, she is tending to her ADL. Mental Status Exam: General Appearance: Patient appears to be stated age is alert, directable, and cooperative. She is wearing glasses Behavior: Patient is calmly seated without any agitated behavior. Speech: Patient's speech is fluent and nonpressured. Mood/Affect: Mood is improving mildly, affect is congruent and bright, reactive. Suicidality/Homicidality: Patient denies having any suicidal or homicidal ideation intent or plan. Perceptions: Patient denies any visual hallucinations and denies any auditory hallucinations Though content/process: There is no evidence of any delusional thought content and thought process is linear and goal-directed. Memory and concentration: AOX3, grossly intact for the purposes of this session Judgment and insight: Improving mildly Assessment Suicide attempt via OD, cutting Major depressive disorder, recurrent, severe Alcohol use disorder, moderate Nicotine dependence Assessment/Plan: Continue with current diagnosis. Patient continues to meet criteria for inpatient psychiatric admission for symptom stabilization and safety. Patient will be maintained on current psychotropic medication regimen, will continue Zoloft 50 mg p.o. daily, trazodone 50 mg as needed at bedtime. Monitor for medication compliance and for any psychotropic medication side effects. Will continue to monitor ongoing response to treatment. Encouraged participation in milieu.
--- NOTE | 2024-10-10 08:10 | P.PN ---
Progress Note - Text Progress Note Date: 10/10/24 Dictation was produced using [employer] dictation software. Please excuse any grammatical, word or spelling errors. Interval history: Patient was seen in the hallway and was directable and agreeable to speak with the typewriter aligner in the office for psychiatric follow-up. Pt states that she slept well last night, reported that she is feeling rested, reported that she has been reading a book, reported that she usually enjoys reading. Reported that depression, and anxiety are at the low side, she rated depression at 1/10, and anxiety at 0/10. She denied any current suicidal, self-harm or homicidal thoughts or behavior. Denied any auditory or visual hallucination. Reported that she had really good sleep last night, reported good appetite. She reported that she has some sort of constipation and she was encouraged to give milk of magnesia to try, she reported that she will continue to hydrate herself and walk the halls and if she does not have a bowel movement today she will get some. She is compliant with her medication, denied any side effects. Reported that she is planning on seeing a therapist and psychiatrist following discharge. Reported that she is looking forward to going back home soon, reported she has good family support from her family. Patient was calm, cooperative and pleasant during the interview, her insight has been improving, she is future oriented. Thought process is logical and linear. He is tending to her ADL. No issues of aggression or agitation reported. Getting along well with everyone in the unit. Mental Status Exam: General Appearance: Patient appears to be stated age is alert, directable, and cooperative. She is wearing glasses Behavior: Patient is calmly seated without any agitated behavior. Speech: Patient's speech is fluent and nonpressured. Mood/Affect: Mood is "very good", affect is congruent and bright, reactive. Suicidality/Homicidality: Patient denies having any suicidal or homicidal ideation intent or plan. Perceptions: Patient denies any visual hallucinations and denies any auditory hallucinations Though content/process: There is no evidence of any delusional thought content and thought process is linear and goal-directed. Memory and concentration: AOX3, grossly intact for the purposes of this session Judgment and insight: Improving Assessment Suicide attempt via OD, cutting Major depressive disorder, recurrent, severe Alcohol use disorder, moderate Nicotine dependence Assessment/Plan: Continue with current diagnosis. Patient continues to meet criteria for inpatient psychiatric admission for symptom stabilization and safety. Patient will be maintained on current psychotropic medication regimen, will continue Zoloft 50 mg p.o. daily, trazodone 50 mg as needed at bedtime. Monitor for medication compliance and for any psychotropic medication side effects. Will continue to monitor ongoing response to treatment. Encouraged participation in milieu.
[2024-10-10 18:32] LABS: Influenza A Not Detected (Not Detectd); Influenza B Not Detected (Not Detectd); RSV Not Detected (Not Detectd)
[2024-10-11 06:56] VITALS: BP 129/81; PULSE 65; TEMP 97.6
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
== END 2024-10-11 13:52 | disposition home or self-care (01) | DRG 751 ==
LOC: EC 22:23 → 3MHU 10-06 13:14
PROVIDERS: ADMIT Psychiatry & Neurology Psychiatry; ATTEND Psychiatry & Neurology Psychiatry
DX: F33.2 Major depressive disorder, recurrent severe without psychotic features (principal); F10.20 Alcohol dependence, uncomplicated; F17.210 Nicotine dependence, cigarettes, uncomplicated; F41.9 Anxiety disorder, unspecified; K59.00 Constipation, unspecified; S51.811A Laceration without foreign body of right forearm, initial encounter; S51.812A Laceration without foreign body of left forearm, initial encounter; S61.511A Laceration without foreign body of right wrist, initial encounter; G47.09 Other insomnia; S61.512A Laceration without foreign body of left wrist, initial encounter; X78.9XXA Intentional self-harm by unspecified sharp object, initial encounter; Z63.8 Other specified problems related to primary support group; Z79.899 Other long term (current) drug therapy; Z59.86 Financial insecurity; Z56.0 Unemployment, unspecified; Z71.41 Alcohol abuse counseling and surveillance of alcoholic; Z71.89 Other specified counseling; Z11.52 Encounter for screening for COVID-19
CPT/HCPCS: 36415; 80053; 80143; 80179; 80306; 80320; 81001; 82075; 83036; 83690; 83735; 84100; 84443; 85025; 87635; 87636; 93005; 99285

== ENCOUNTER → 2024-11-27 | Outpatient (CLI) | payer OTHER ==
--- NOTE | 2024-11-27 08:44 | XR ---
EXAMINATION TYPE: XR chest 2V DATE OF EXAM: 11/27/2024 CLINICAL INDICATION: Female, 64 years old with history of Z01.818 ENCOUNTER FOR OTHER PREPROCEDURAL E XAMINATION, TECHNIQUE: Frontal and lateral views of the chest are obtained. COMPARISON: None FINDINGS: There is no focal air space opacity, pleural effusion, or pneumothorax seen. The cardiac silhouette size is within normal limits. Rounded ossific densities in region of left shoulder joint c ould reflect dystrophic calcifications. IMPRESSION: No acute cardiopulmonary process. [facility], , 11/27/2024 8:42 AM
== END | disposition home or self-care (01) ==
LOC: RADXRMAIN 08:16
PROVIDERS: ATTEND Family Medicine
DX: Z01.818 Encounter for other preprocedural examination (principal)
CPT/HCPCS: 71046

== ENCOUNTER → 2024-12-13 | Outpatient (CLI) | payer OTHER ==
--- NOTE | 2024-12-13 08:41 | MM ---
Reason for Exam: Screening (asymptomatic). Last mammogram was performed 2 year(s) and 0 month(s) ago. Patient History: Menarche at age 14. First Full-Term at age 36. Late child-bearing (after 30). Postmenopausal. Risk Values: Meron 5 year model risk: 2.1%. NCI Lifetime model risk: 9.4%. Prior Study Comparison: 09/19/2020 Bilateral Screening Mammogram, [facility]. 11/15/2021 Bilateral Screening Mammogram, [facility]. 12/10/2022 Bilateral MG 3D screening mammo w/cad, [facility]. Tissue Density: There are scattered areas of fibroglandular density. Findings: Analyzed By CAD. Unchanged global asymmetry upper outer quadrant right breast with adjacent chronic nodularity. There is no suspicious group of microcalcifications or new suspicious mass in either breast. Overall Assessment: Benign, BI-RAD 2 Management: Screening Mammogram of both breasts in 1 year. Patient should continue monthly self-breast exams. A clinical breast exam by your physician is recommended on an annual basis. This exam should not preclude additional follow-up of suspicious palpable abnormalities. Note on Meron scores and lifetime risk: 1. A Meron score greater than 3% is considered moderate risk. If this is the case, consider specialist referral to assess eligibility for a risk reducing agent. 2. If overall lifetime risk for the development of breast cancer is 20% or higher, the patient may qualify for future screening with alternating mammogram and breast MRI. [facility], , 12/13/2024 8:38 AM. Electronically signed and approved by: Dana Galdamez M.D. Radiologist
--- NOTE | 2024-12-13 09:22 | US ---
EXAMINATION TYPE: US liver DATE OF EXAM: 12/13/2024 COMPARISON: NONE CLINICAL INDICATION: Female, 64 years old with history of R74.8 ABN LEVELS SERUM ENZYMES; Abnormal la bs TECHNIQUE: Grayscale and color Doppler imaging of the right upper quadrant was performed. FINDINGS: EXAM MEASUREMENTS: Liver Length: 15.1 cm Gallbladder Wall: 0.1 cm CBD: 0.8 cm Right Kidney: 10.4 x 4.4 x 4.6 cm Pancreas: Limited visualization, not well seen Liver: wnl Gallbladder: No stones or wall thickening Evidence for sonographic James's sign: neg CBD: wnl Right Kidney: No hydronephrosis or masses seen . Tiny cyst may be at the inferior right renal cortex . IMPRESSION: No suspicious acute ultrasound changes. [facility], , 12/13/2024 9:19 AM
== END | disposition home or self-care (01) ==
LOC: RADMAMWWP 07:17
PROVIDERS: ATTEND Family Medicine
DX: Z12.31 Encounter for screening mammogram for malignant neoplasm of breast (principal); R92.323 Mammographic fibroglandular density, bilateral breasts; R74.8 Abnormal levels of other serum enzymes; Z78.0 Asymptomatic menopausal state
CPT/HCPCS: 76705; 77063; 77067

== ENCOUNTER 2025-03-08 11:53 | Emergency (ER) | payer OTHER ==
--- NOTE | 2025-03-08 12:22 | ED ---
General Adult HPI - General Chief complaint: Skin/Abscess/Foreign Body Stated complaint: Fall-Facial lac Time Seen by Provider: 03/08/25 12:03 Source: patient, RN notes reviewed Mode of arrival: ambulatory Limitations: no limitations - History of Present Illness Initial comments: 64-year-old female presenting to the emergency department with complaints of left-sided facial pain and drainage. Patient states that she tripped on Friday walking outside over uneven cement steps and hit the left side of her cheekbone on the ground. She denies loss of consciousness at the time of the fall. She states that she has been cleaning the area with alcohol and applying Neosporin however was concerned that this morning there was drainage that appeared to be p urulent. Patient endorses pain of the left side of the face that feels like it extends into her neck. She denies posterior neck pain, headaches, visual disturbances. Last tetanus vaccination within the past 5 years. Denies blood thinner use. - Related Data Previous Rx's Medication Instructions Recorded Folic Acid 1 mg PO DAILY 30 Days #30 tab 10/11/24 Melatonin 5 mg PO HS 30 Days #60 tab 10/11/24 Multivitamins, Thera [Multivitamin 1 each PO DAILY 30 Days #30 tab 10/11/24 (formulary)] Sertraline [Zoloft] 50 mg PO DAILY 30 Days #30 tab 10/11/24 Thiamine [Vitamin B-1] 100 mg PO DAILY 30 Days #30 tab 10/11/24 Allergies Allergy/AdvReac Type Severity Reaction Status Date / Time No Known Allergies Allergy Verified 03/08/25 11:59 Review of Systems ROS Statement: Those systems with pertinent positive or pertinent negative responses have been documented in the HPI. ROS Other: All systems not noted in ROS Statement are negative. Past Medical History Past Medical History: No Reported History History of Any Multi-Drug Resistant Organisms: None Reported Past Surgical History: Appendectomy, Hernia Repair Additional Past Surgical History / Comment(s): ABDOMINAL HERNIA, OVARIAN CYST, COLONOSCOPIES Past Anesthesia/Blood Transfusion Reactions: No Reported Reaction Past Psychological History: Depression Smoking Status: Current every day smoker Past Alcohol Use History: Daily Past Drug Use History: None Reported - Past Family History Father Family Medical History: Cancer Additional Family Medical History / Comment(s): COLON CANCER General Exam Limitations: no limitations Neck exam: Present: normal inspection. Absent: tenderness, meningismus, lymphadenopathy Respiratory exam: Present: normal lung sounds bilaterally. Absent: respiratory distress, wheezes, rales, rhonchi, stridor Cardiovascular Exam: Present: regular rate, normal rhythm, normal heart sounds. Absent: systolic murmur, diastolic murmur, rubs, gallop, clicks GI/Abdominal exam: Present: soft, normal bowel sounds. Absent: distended, tenderness, guarding, rebound, rigid Extremities exam: Present: normal inspection, full ROM, normal capillary refill. Absent: tenderness, pedal edema, joint swelling, calf tenderness Back exam: Present: normal inspection Expanded Type of lesion: Present: other (left superior cheek laceration,1 cm, with purulent serous drainage and tenderness) Course Vital Signs 03/08/25 03/08/25 11:56 14:22 Temperature 97.9 F 98 F Pulse Rate 100 67 Respiratory 18 16 Rate Blood Pressure 148/89 140/82 O2 Sat by Pulse 97 98 Oximetry Medical Decision Making - Medical Decision Making Was pt. sent in by a medical professional or institution (LINDSEY Luis, PRESIDENTIAL SUPPORT SPECIALIST, urgent care, hospital, or senior care...) When possible be specific @ -No Did you speak to anyone other than the patient for history (EMS, parent, family, police, friend...)? What history was obtained from this source @ -No Did you review nursing and triage notes (agree or disagree)? Why? @ -I reviewed and agree with nursing and triage notes Were old charts reviewed (outside hosp., previous admission, EMS record, old EKG, old radiological studies, urgent care reports/EKG's, senior care records)? Report findings @ -No old charts were reviewed Differential Diagnosis (chest pain, altered mental status, abdominal pain women, abdominal pain men, vaginal bleeding, weakness, fever, dyspnea, syncope, headache, dizziness, GI bleed, back pain, seizure, CVA, palpatations, mental health, musculoskeletal)? @ -Laceration, skin avulsion, cellulitis, foreign body in soft tissue, cervical spine fracture, this list is not all inclusive EKG interpreted by me (3pts min.). @ -none X-rays interpreted by me (1pt min.). @ -None done CT interpreted by me (1pt min.). @ -CT of the facial bones without contrast left facial laceration with subcutaneous and intramuscular air noted with a rectangular shaped lucency within the masseter musculature possible foreign body CT of the brain and C-spine without contrast reveals no acute intracranial cervical spine process U/S interpreted by me (1pt. min.). @ -None done What testing was considered but not performed or refused? (CT, X-rays, U/S, labs)? Why? @ -None What meds were considered but not given or refused? Why? @ -None Did you discuss the management of the patient with other professionals (professionals i.e. DrKeith, PA, PRESIDENTIAL SUPPORT SPECIALIST, lab, RT, psych nurse, social science analyst, finishing supervisor, teacher, railway patrol officer, rn case mgr)? Give summary @ -I spoke with on-call general surgery, Dr. Gross, was recommended transfer to outside facility for ENT/maxillofacial coverage for further evaluation of potential foreign body in soft tissue. I spoke with Dr. Wilks, trauma specialist at [facility] is recommend transfer ER to ER for further evaluation. Was smoking cessation discussed for >3mins.? @ -No Was critical care preformed (if so, how long)? @ -No Were there social determinants of health that impacted care today? How? (Homelessness, low income, unemployed, alcoholism, drug addiction, transportation, low edu. Level, literacy, decrease access to med. care, nursing home, rehab)? @ -No Was there de-escalation of care discussed even if they declined (Discuss DNR or withdrawal of care, Hospice)? DNR status @ -No What co-morbidities impacted this encounter? (DM, HTN, Smoking, COPD, CAD, Cancer, CVA, ARF, Chemo, Hep., AIDS, mental health diagnosis, sleep apnea, mo rbid obesity)? @ -None Was patient admitted / discharged? Hospital course, mention meds given and route, prescriptions, significant lab abnormalities, going to OR and other pertinent info. @ -Transferred. 64-year-old female presenting with a fall and left-sided facial laceration. There is a 1 cm area laceration over the left lateral cheek with evidence of purulent and serous drainage with surrounding edema and erythema. Area is tender to the touch. Patient was offered pain medication however is declined. CT imaging is concerning for foreign body within the masseter musculature on the left side of the face with noted subcutaneous and intramuscular air. CT of the brain and C-spine is unremarkable. General surgeon recommends transfer to facility with ENT/maxillofacial coverage. Adrien t is provided with dose Rocephin will be transferred to [facility] for further evaluation. Patient to be transferred via private vehicle. Case discussed with my attending Dr. Wang. Dr. Wilks at [facility] has accepted transfer for further evaluation. Undiagnosed new problem with uncertain prognosis? @ -No Drug Therapy requiring intensive monitoring for toxicity (Heparin, Nitro, Insuli n, Cardizem)? @ -No Were any procedures done? @ -No Diagnosis/symptom? @ -Foreign body in masseter muscle, fall, facial laceration Acute, or Chronic, or Acute on Chronic? @ -Acute Uncomplicated (without systemic symptoms) or Complicated (systemic symptoms)? @ -Complicated Side effects of treatment? @ -No Exacerbation, Progression, or Severe Exacerbation? @ -No Poses a threat to life or bodily function? How? (Chest pain, [place], [place], pneumonia, PE, COPD, DKA, ARF, appy, cholecystitis, CVA, Diverticulitis, Homicidal, Suicidal, threat to staff... and all critical care pts) @ -No Disposition Clinical Impression: Foreign body in musculoskeletal structure Disposition: OTHER INSTITUTION NOT DEFINED Condition: Stable Referrals: Jose G Lofton DO [Primary Care Provider] - 1-2 days - Out of Hospital Transfer - Req. Specs Out of Hospital Transfer - Requested Specifics: Other Emergency Center ([facility])
[2025-03-08] MEDS: IBUPROFEN 800 MG TAB PO STA (12:41)
[2025-03-08] MEDS: cefTRIAXone 1,000 MG VIAL (IM USE) IM STA (12:42)
--- NOTE | 2025-03-08 12:49 | CT ---
EXAMINATION TYPE: CT brain cspine wo con DATE OF EXAM: 03/08/2025 COMPARISON: None CLINICAL INDICATION: Female, 64 years old with history of fall, pain, swelling; PHH, Fall. Pain. TECHNIQUE: CT scan of the head and cervical spine are performed without contrast. CT DLP: Combined DLP of 990.[address] CTDI: mGy Automated exposure control for dose reduction was used. FINDINGS: There is no acute intracranial hemorrhage, mass effect, or midline shift identified. The ventricles and sulci are within normal limits in size. The globes are intact and the visualized sinuses are cari ar. Cervical spine is visualized in its entirety from C1 through upper thoracic levels and demonstrates s atisfactory alignment without evidence of acute fracture or dislocation. Prevertebral soft tissue ap pears within normal limits. The C1-C2 articulation is unremarkable. IMPRESSION: There is no acute fracture or dislocation evident in the cervical spine. 2. No acute intracranial hemorrhage, mass effect, or midline shift is seen. [facility], , 03/08/2025 12:46 PM
--- NOTE | 2025-03-08 12:51 | CT ---
EXAMINATION TYPE: CT facial bones wo con DATE OF EXAM: 03/08/2025 12:44 PM COMPARISON: None. CLINICAL INDICATION: Female, 64 years old with history of fall, pain, swelling, Fall. Laceration to l eft side of face., pain TECHNIQUE: Unenhanced CT of the facial bones was performed in the axial and coronal planes. Bone and soft tissue window settings are submitted. CT DLP: Combined DLP of 990.3 mGycm, Automated exposure control for dose reduction was used. Contrast used: mL of , (none if empty) FINDINGS: Low I do not see evidence for displaced facial bone fracture or depressed facial bone fracture. The globes are intact. Paranasal sinuses are well-aerated. IMPRESSION: 1. Left facial laceration with subcutaneous and intramuscular air is seen. There is a rectangular sh aped lucency noted within the masseter musculature on the left axial image 38 measuring 1.0 x 0.6 cm which could reflect foreign body of uncertain etiology. . [facility], , 03/08/2025 12:49 PM
[2025-03-08 14:23] VITALS: RESP 16; TEMP 98
[2025-03-08 14:47] VITALS: BP 133/71; PULSE 78
== END 2025-03-08 14:47 | disposition other institution (70) ==
LOC: EC 11:53
DX: S01.81XA Laceration without foreign body of other part of head, initial encounter (principal); F17.200 Nicotine dependence, unspecified, uncomplicated; W01.198A Fall on same level from slipping, tripping and stumbling with subsequent striking against other object, initial encounter
CPT/HCPCS: 72125; 70486; 70450; 99284; 96372; J0696